=== PATIENT | female | born 1980 | race African-American/Black ===

== ENCOUNTER 2017-04-04 09:50 | Emergency (ER) | payer BC ==
[~2017-04-04] VITALS: Ht 160 cm; Wt 113.6 kg
[~2017-04-04 09:50] MED LIST: CLARITIN 1010 MG/TAB PO; COMBIVENT INH14.7 GM IH; NORCO PO; PREDNISONE20 MG PO; XOPENEX 1.1.25 MG/3 IH
[2017-04-04 09:52] VITALS: TEMP 99
[2017-04-04] MEDS ORDERED: BREO IH (10:03)
[2017-04-04] MEDS ORDERED: SINGULAIR 110 MG/TAB PO (10:04)
[2017-04-04] MEDS ORDERED: FLONASEALLERGY NS (10:05)
[2017-04-04 10:55] LABS: BASO % 0.4 % (0.0-2.0); EOS # 0.2 (0.0-0.7); EOS % 1.8 % (0-4.0); GRAN # 6.4 (1.4-6.5); GRAN % 76.6 % (42.2-75.2); HEMOGLOBIN 12.1 g/dl (12.5-16.0); LYMPH # 1.3 (1.2-3.4); LYMPH % 16.2 % (20.0-51.0); MEAN CELL VOLUME 90 fl (80.0-100.0); MEAN CORPUSCULAR HEMOGLOBIN 29 pg (27.0-31.0); MEAN CORPUSCULAR HGB CONC 33 g/dl (33.0-37.0); MEAN PLATELET VOLUME 11.1 fl (7.4-10.4); MONO # 0.4 (0.1-0.6); MONO % 4.8 % (1.7-9.3); PLATELET COUNT 187 K/mm3 (130-400); RED BLOOD COUNT 4.11 M/mm3 (4.10-5.30); REDCELL DISTRIBUTION WIDTH-CV 12.9 % (11.5-14.5); WHITE BLOOD COUNT 8.3 K/mm3 (4.8-10.8)
[2017-04-04 10:56] LABS: HEMATOCRIT 36.9 % (37.0-47.0)
[2017-04-04 11:13] LABS: ADJUSTED CALCIUM 9.1 mg/dL (8.4-10.2); ALBUMIN 4.1 gm/dL (3.5-5.0); CALCIUM 9.2 mg/dL (8.4-10.2); CREATININE, serum 0.67 mg/dL (0.52-1.25); POTASSIUM 3.7 mmol/L (3.4-5.0); TOTAL PROTEIN 7.4 gm/dL (6.4-8.2)
[2017-04-04 13:41] VITALS: BP 137/83; PULSE 85
== END 2017-04-04 13:41 | disposition home or self-care (01) ==
LOC: COL.ER 09:50
PROVIDERS: Physician Assistant Medical
DX: O03.4 Incomplete spontaneous abortion without complication (principal); O99.511 Diseases of the respiratory system complicating pregnancy, first trimester; J45.909 Unspecified asthma, uncomplicated; Z3A.09 9 weeks gestation of pregnancy; Z90.49 Acquired absence of other specified parts of digestive tract